=== PATIENT | male | born 1980 | race Caucasian/White ===

== ENCOUNTER 2017-09-15 11:45 | Emergency (ER) | payer SELFPAY ==
[2017-09-15 11:50] VITALS: BMI 20.9
[2017-09-15] MEDS ORDERED: ASPIRIN ONE (11:58)
[2017-09-15] MEDS ORDERED: ASPIRIN 81 MG CHEWTAB PO SCH (12:00)
[2017-09-15] MEDS ORDERED: NITROSTAT SL PRN (12:01)
--- NOTE | 2017-09-15 12:05 | DR.CP ---
HPI - Time Seen Time seen: 11:50 - PCP Primary Care Physician: ISELA SHIPLEY - HPI Comment HPI Comment: MIDSTERNAL CHEST PRESSURE SINCE YESTERDAY. PAIN NON RADIATING THAT IS WORSE TODAY. CONSTANT PAIN WITH INTERMITTENT EXACERBATION. MEDS TAKEN AT HOME DID NOT HELP PAIN. SIMILAR PAIN IN THE PAST DUE TO CARDIAC PROBLEM. - Complaint Chief Complaint Doctor Comments: CHEST PAIN. Chief Complaint:: PT. C/O MIDSTERNAL CHEST PAIN THAT BEGAN YESTERDAY. PAIN HAS BEEN CONTINUOUS SINCE ONSENT. PT. HAD A FEVER YESTERDAY. PT. STATES THE PAIN WORSENS WHEN HE BENDS OVER. DENIES RADIATING PAIN. - Reviewed Nurses Notes Review: Yes - Source History Provided: Patient - Mode of Arrival Mode of Arrival: Ambulatory - Timing Onset of Chief Complaint: 09/14/17 Came on: Suddenly Pain: Present Now - Duration Duration: Constant Duration: Days - Location Location of Chest Pain: Left, Chest Chest Pain Radiation Location: None - Context Onset: At rest, With light exertion PE Risk Factors: None History of: Similar pain in the past Prehospital Care: None - Quality Quality: Sharp - Severity Severity: Moderate - Modifying Factors Worsens: Exertion, Movement Impoves: Rest - Associated Signs and Symptoms Associated Signs and Symptoms: Shortness of Breath, Palpitations, Nausea/ Vomiting PMH - PMH Past Medical History: Yes Past Medical History Comment: DYSAUTONOMIA Past Surgical History: No Surgical History: No History - Family History History of Family Medical Conditions: No - Social History Does patient currently use any type of tobacco product: Yes Have you used tobacco products in the last 12 months: Yes Type of Tobacco Use: Cigarettes Does any household member use tobacco: No Alcohol Use: None Do you use any recreational Drugs:: Yes (MARIJUANA) Lives With: Significant Other Lives Where: Home - infectious screening In the last 2 months have you had wt loss of >10#?: NO Have you had fever, night sweats or hemotysis?: No Have you traveled outside the country in the last 6 months?: No Isolation: Standard ROS - Review of Systems Constitutional: No Symptoms Reported, Weakness, Fatigue. negative: Chills, Fever Eyes: Eye Pain ENTM: No Symptoms Reported Respiratoy: No Symptoms Reported Cardiovascular: Chest Pain, Palpitations Gastrointestinal/Abdominal: No Symptoms Reported Genitourinary: No Symptoms Reported Neurological: No Symptoms Reported Musculoskeletal: No Symptoms Reported Integumentary: No Symptoms Reported Hematologic/Lymphatic: No Symptoms Reported Endocrine: No Symptoms Reported All Other Systems: Reviewed and Negative PE - Vitals Vitals: Temperature 97.6 F Pulse Rate [Apical] 64 Pulse Rate 113 Respiratory Rate 17 Blood Pressure [Left Arm] 121/82 Blood Pressure 133/73 O2 Sat by Pulse Oximetry 100 - General Limitations: No Limitations General Appearance: Alert - Head Head Exam: Normal Inspection - Eyes Eye exam: Normal Appearance - ENT ENT Exam: Normal External Ear Exam - Chest Chest Inspection: Symmetric Chest Wall Rise - Respiratory Respiratory Exam: Normal Lung Sounds Bilat Respiratory Exam: Bilateral Clear to Auscultation - Cardiovascular Cardiovascular Exam: Regular Rate, Normal Rhythm, Normal Heart Sounds Pulse: Normal, Radial, Femoral Edema: Normal - Abdominal Exam Abdominal Exam: Normal Bowel Sounds, Soft. negative: Tenderness - Extremities Extremities Exam: Normal Inspection - Back Back Exam: Normal Inspection - Neurologic Neurological Exam: Alert, Oriented X3, CN II-XII Intact, Normal Gait, Reflexes Normal. negative: Motor Sensory Deficit - Psychiatric Psychiatric Exam: Normal Affect, Normal Mood - Skin Skin Exam: Normal Color MDM - Additional Information Additional Information Obtained From: Family - Differential Diagnosis Differential Diagnosis: Angina, Costochondritis, Esophageal Reflux/Spasm, Gastritis, Myocardial Infarction, Pericarditis, Pleuritis, Pancreatitis, Pneumonia, Pneumothorax, Pulmonary Embolus Course - Treatment Treatment: SEE ORDERS. - Education/Counseling Education/Counseling: Patient, Family, Education Educated On: Treatment, Diagnosis ROR - Labs Reviewed Laboratory Results Reviewed?: Yes Result Diagrams: 09/15/17 12:06 09/15/17 12:06 Laboratory: WBC 8.5 X10^3/uL (3.6-10.0) 09/15/17 12:06 RBC 4.95 X10^6/uL (4.7-6.0) 09/15/17 12:06 Hgb 14.7 g/dL (13.5-18.0) 09/15/17 12:06 Hct 43.4 % (42.0-54.0) 09/15/17 12:06 MCV 87.7 fL (80.0-100.0) 09/15/17 12:06 MCH 29.6 pg (27.0-34.0) 09/15/17 12:06 MCHC 33.8 g/dL (33.0-35.0) 09/15/17 12:06 RDW 14.4 % (11.6-16.5) 09/15/17 12:06 Plt Count 217 X10^3/uL (150.0-450.0) 09/15/17 12:06 MPV 9.1 fL (7.4-11.0) 09/15/17 12:06 Neut % 63.4 % (42.0-75.0) 09/15/17 12:06 Lymph % 20.6 % (21.0-51.0) L 09/15/17 12:06 [place] % 12.0 % (0.0-13.0) 09/15/17 12:06 Eos % 3.3 % (0.9-2.9) H 09/15/17 12:06 Baso % 0.7 % (0.2-1.0) 09/15/17 12:06 Neut # 5.4 x10^3/uL (2.2-4.8) H 09/15/17 12:06 Lymph # 1.8 X10^3/uL (1.3-2.9) 09/15/17 12:06 [place] # 1.0 x10^3/uL (0.3-0.8) H 09/15/17 12:06 Eos # 0.3 x10^3/uL (0.0-0.2) H 09/15/17 12:06 Baso # 0.1 X10^3/uL (0.0-0.1) 09/15/17 12:06 Absolute Nucleated RBC 0.0 /100WBC 09/15/17 12:06 INR Target Range - 09/15/17 12:06 INR 0.99 (0.8-1.3) 09/15/17 12:06 PTT 31.0 SECONDS (22.9-36.5) 09/15/17 12:06 PTT Comment - 09/15/17 12:06 D-Dimer < 100 ng/mL (0-400) 09/15/17 12:06 Sodium 140 mmol/L (136-145) 09/15/17 12:06 Corrected Sodium TNP 09/15/17 12:06 Potassium 3.8 mmol/L (3.5-5.1) 09/15/17 12:06 Chloride 104 mmol/L (98-107) 09/15/17 12:06 Carbon Dioxide 26.7 mmol/L (21-32) 09/15/17 12:06 BUN 7 mg/dL (7-18) 09/15/17 12:06 Creatinine 0.88 mg/dL (0.70-1.30) 09/15/17 12:06 Est GFR (MDRD) Af Amer > 60 (>60) 09/15/17 12:06 Est GFR (MDRD) Non-Af > 60 (>60) 09/15/17 12:06 Glucose 104 mg/dL (65-99) H 09/15/17 12:06 Calcium 8.8 mg/dL (8.5-10.1) 09/15/17 12:06 Corrected Calcium TNP 09/15/17 12:06 Magnesium 2.0 mg/dL (1.7-2.9) 09/15/17 12:06 Total Bilirubin 0.30 mg/dL (0.2-1.0) 09/15/17 12:06 AST 57 Units/L (15-37) H 09/15/17 12:06 ALT 88 Units/L (12-78) H 09/15/17 12:06 Alkaline Phosphatase 65 Units/L (46-116) 09/15/17 12:06 Creatine Kinase 34 Units/L (39-308) L 09/15/17 15:48 CK-MB (CK-2) < 1.0 ng/mL (0-4.0) 09/15/17 15:48 CK/CKMB % Calc 2.9 % (<4) 09/15/17 15:48 Troponin I < 0.02 ng/mL (0-1.5) 09/15/17 15:48 B-Natriuretic Peptide 57.6 pg/mL (0-79) 09/15/17 12:06 Total Protein 7.3 g/dL (6.4-8.2) 09/15/17 12:06 Albumin 3.6 g/dL (3.4-5.0) 09/15/17 12:06 Globulin 3.7 g/dL (2.5-4.5) 09/15/17 12:06 Albumin/Globulin Ratio 1.0 Ratio (1.1-2.1) L 09/15/17 12:06 Triglycerides 55 mg/dL (0-150) 09/15/17 12:06 Cholesterol 166 mg/dL (0-200) 09/15/17 12:06 LDL Cholesterol, Calc 99 mg/dL (0-100) 09/15/17 12:06 HDL Cholesterol 56 mg/dL (40-60) 09/15/17 12:06 Cholesterol/HDL Ratio 3.0 (0.0-5.0) 09/15/17 12:06 Specimen Type Clean catch urine 09/15/17 13:04 Urine Color Yellow (YELLOW) 09/15/17 13:04 Urine Appearance Clear (CLEAR) 09/15/17 13:04 Urine pH 7.0 (5.0 - 8.0) 09/15/17 13:04 Ur Specific [place] 1.010 (1.000-1.030) 09/15/17 13:04 Urine Protein Negative (NEGATIVE) 09/15/17 13:04 Urine Glucose (UA) Negative (NEGATIVE) 09/15/17 13:04 Urine Ketones Negative (NEGATIVE) 09/15/17 13:04 Urine Occult Blood 1+ (NEGATIVE) 09/15/17 13:04 Urine Nitrite Negative (NEGATIVE) 09/15/17 13:04 Urine Bilirubin Negative (NEGATIVE) 09/15/17 13:04 Urine Urobilinogen Normal (NORMAL) 09/15/17 13:04 Ur Leukocyte Esterase Negative (NEGATIVE) 09/15/17 13:04 Urine RBC Rare /HPF (NEGATIVE) 09/15/17 13:04 Urine WBC None seen /HPF (NEGATIVE) 09/15/17 13:04 Ur Squamous Epith Cells Rare /HPF (NEGATIVE) 09/15/17 13:04 Urine Bacteria Negative /HPF (NEGATIVE) 09/15/17 13:04 Ur Culture Indicated? No/not indicated 09/15/17 13:04 Urine Opiates Screen Negative (NEG=<300) 09/15/17 13:04 Urine Methadone Screen Negative (NEG=<300) 09/15/17 13:04 Ur Barbiturates Screen Negative (NEG=<200) 09/15/17 13:04 Ur Phencyclidine Scrn Negative (NEG=<25) 09/15/17 13:04 Ur Amphetamines Screen Negative (NEG=<1000) 09/15/17 13:04 U Benzodiazepines Scrn Positive (NEG=<200) 09/15/17 13:04 Urine Cocaine Screen Negative (NEG=<300) 09/15/17 13:04 U Marijuana (THC) Screen Positive (NEG=<50) A 09/15/17 13:04 - XRAY XRAY Interpreted by: Radiologist XRAY Findings: REPORT DISCUSS WITH PATIENT. - EKG Rhythm: NSR ST: Ischemia, Infarct - Diagnosis Discharge Problem: Chest pain - Discharge Plan Disposition: 02 XFER [facility] Condition: Stable - Follow ups/Referrals Follow ups/Referrals: YONNY EVANGELISTA [Primary Care Provider] - 3 days - Instructions
[2017-09-15] MEDS ORDERED: ASPIRIN PO ONE (12:09)
[2017-09-15] MEDS ORDERED: NITROSTAT SL ONE (12:09)
[2017-09-15] MEDS ORDERED: PEPCID 20 MG IV PREMIX* 20 MG/50 ML BAG IV ONE ×2 (12:12→12:26)
[2017-09-15 12:26] LABS: BASOPHILS # (AUTO) 0.1 X10^3/uL (0.0-0.1); BASOPHILS % (AUTO) 0.7 % (0.2-1.0); EOSINOPHILS # (AUTO) 0.3 x10^3/uL (0.0-0.2); EOSINOPHILS % (AUTO) 3.3 % (0.9-2.9); HEMATOCRIT 43.4 % (42.0-54.0); HEMOGLOBIN 14.7 g/dL (13.5-18.0); LYMPHOCYTES # (AUTO) 1.8 X10^3/uL (1.3-2.9); LYMPHOCYTES % (AUTO) 20.6 % (21.0-51.0); MEAN CORPUSCULAR HEMOGLOBIN 29.6 pg (27.0-34.0); MEAN CORPUSCULAR HGB CONC 33.8 g/dL (33.0-35.0); MEAN CORPUSCULAR VOLUME 87.7 fL (80.0-100.0); MEAN PLATELET VOLUME 9.1 fL (7.4-11.0); NEUTROPHILS # (AUTO) 5.4 x10^3/uL (2.2-4.8); NEUTROPHILS % (AUTO) 63.4 % (42.0-75.0); PLATELET COUNT 217 X10^3/uL (150.0-450.0); RED BLOOD COUNT 4.95 X10^6/uL (4.7-6.0); RED CELL DISTRIBUTION WIDTH 14.4 % (11.6-16.5); WHITE BLOOD COUNT 8.5 X10^3/uL (3.6-10.0)
[2017-09-15] MEDS ORDERED: MORPHINE SULFATE INJ 4 MG IVP ONE (12:36)
[2017-09-15] MEDS ORDERED: ZOFRAN INJ 4 MG VIAL IVP ONE (12:36)
--- NOTE | 2017-09-15 12:38 | RAD ---
HISTORY: Chest pain Study: Single-view chest, two views were obtained Comparison: None Findings: The trachea is midline. The cardiac silhouette is unremarkable. The lungs are clear without focal m ass or consolidation. There is no effusion or pneumothorax. The bony thorax is grossly unremarkable . IMPRESSION: No acute cardiopulmonary disease. Reported By:
[2017-09-15 12:41] LABS: B-TYPE NATRIURETIC PEPTIDE 57.6 pg/mL (0-79)
[2017-09-15] MEDS ORDERED: MORPHINE SULFATE INJ 4 MG ONE (12:41)
[2017-09-15] MEDS ORDERED: ZOFRAN INJ 4 MG VIAL ONE (12:41)
[2017-09-15 12:50] LABS: ALANINE AMINOTRANSFERASE 88 Units/L (12-78); ALBUMIN 3.6 g/dL (3.4-5.0); ALKALINE PHOSPHATASE 65 Units/L (46-116); ASPARTATE AMINO TRANSFERASE 57 Units/L (15-37); BLOOD UREA NITROGEN 7 mg/dL (7-18); CALCIUM 8.8 mg/dL (8.5-10.1); CARBON DIOXIDE 26.7 mmol/L (21-32); CHLORIDE 104 mmol/L (98-107); CHOLESTEROL 166 mg/dL (0-200); CKMB % 2.7 % (<4); CREATINE KINASE 37 Units/L (39-308); CREATINE KINASE MB < 1.0 ng/mL (0-4.0); CREATININE 0.88 mg/dL (0.70-1.30); HDL CHOLESTEROL 56 mg/dL (40-60); SODIUM 140 mmol/L (136-145); TOTAL PROTEIN 7.3 g/dL (6.4-8.2); TRIGLYCERIDES 55 mg/dL (0-150); TROPONIN I < 0.02 ng/mL (0-1.5); eGFR BLACK RACES > 60 (>60); eGFR NON BLACK RACES > 60 (>60)
[2017-09-15 13:24] LABS: BILIRUBIN,URINE NEGATIVE (NEGATIVE); BLOOD/HEMOGLOBIN,URINE 1+ (NEGATIVE); GLUCOSE, URINE NEGATIVE (NEGATIVE); KETONES,URINE NEGATIVE (NEGATIVE); LEUKOCYTE ESTERASE ,URINE NEGATIVE (NEGATIVE); NITRITES,URINE NEGATIVE (NEGATIVE); PROTEIN,URINE NEGATIVE (NEGATIVE); UROBILINOGEN,URINE NORMAL (NORMAL)
[2017-09-15 13:26] LABS: APPEARANCE,URINE CLEAR (CLEAR); COLOR,URINE YELLOW (YELLOW)
[2017-09-15 13:42] LABS: BACTERIA,URINE NEGATIVE /HPF (NEGATIVE); RBC,URINE RARE /HPF (NEGATIVE); SQUAMOUS EPITHELIAL CELL,UR RARE /HPF (NEGATIVE)
[2017-09-15 16:23] LABS: CKMB % 2.9 % (<4); CREATINE KINASE 34 Units/L (39-308); CREATINE KINASE MB < 1.0 ng/mL (0-4.0); TROPONIN I < 0.02 ng/mL (0-1.5)
[2017-09-15] MEDS ORDERED: LOPRESSOR INJ 5 MG AMP IVP ONE (16:39)
[2017-09-15] MEDS ORDERED: PLAVIX PO SCH (17:00)
[2017-09-15] MEDS ORDERED: HEPARIN SODIUM INJ 5000 UNITS ONE (18:17)
[2017-09-15] MEDS ORDERED: HEPARIN SODIUM IN D5W 25,000 UNITS/500 ML BAG IV ONE (18:17)
[2017-09-15] MEDS ORDERED: PLAVIX ONE (18:18)
[2017-09-15] MEDS ORDERED: HEPARIN SODIUM IN D5W 25,000 UNITS/500 ML BAG IV PRN (18:20)
[2017-09-15] MEDS ORDERED: HEPARIN SODIUM INJ 5000 UNITS IVP ONE (18:20)
[2017-09-15] MEDS ORDERED: LOPRESSOR INJ 5 MG AMP ONE (18:36)
[2017-09-15 18:41] VITALS: BP 121/82
== END 2017-09-15 18:41 | disposition short-term general hospital (02) ==
LOC: ER 11:45
DX: R07.89 Other chest pain (principal)
CPT/HCPCS: 36415; 71045; 80053; 80061; 80307; 81001; 82550; 82553; 83735; 83880; 84484; 85025; 85378; 85610; 85730; 93005; 93010; 96365; 96374; 96375; 99285; A4222; S0028; G0434; J1644; J2270; J2405; J3490